=== PATIENT | female | born 1990 | race Two or more races ===

== ENCOUNTER 2025-03-15 05:47 | Emergency (ER) | payer OTHER ==
[~2025-03-15] VITALS: Ht 154.9 cm; Wt 72.6 kg
[2025-03-15 06:04] VITALS: TEMP 98.7
[2025-03-15] MEDS ORDERED: LORAZEPAM 1 MG TABLET ONE (06:25)
[2025-03-15 06:26] LABS: PLATELET COUNT (AUTO) 254 K/uL (150-450); RED BLOOD CELL COUNT(AUTO) 5.29 MIL/uL (4.0-5.2); RED CELL DISTRIBUTION WIDTH 13.1 % (11.5-15.0); WHITE BLOOD COUNT (AUTO) 6.6 K/uL (4.3-11.0)
[2025-03-15] MEDS: LORAZEPAM 1 MG TABLET PO ONE (06:30)
[2025-03-15 06:34] LABS: CALCIUM, SERUM 9.1 mg/dL (8.5-10.1); CREATININE 0.9 mg/dL (0.6-1.3); SODIUM SERUM 139 mmol/L (136-145); UREA NITROGEN, BLOOD 11 mg/dL (7-18)
[2025-03-15 07:20] VITALS: BP 128/93; O2SAT 99
== END 2025-03-15 07:24 | disposition home or self-care (01) ==
LOC: ER 05:51
DX: R07.89 Other chest pain (principal); F41.9 Anxiety disorder, unspecified; I10 Essential (primary) hypertension; F32.A Depression, unspecified; G43.909 Migraine, unspecified, not intractable, without status migrainosus; F90.9 Attention-deficit hyperactivity disorder, unspecified type
CPT/HCPCS: 36415; 71045-TC; 80048-TC; 84484-TC; 85025-TC